=== PATIENT | female | born 1950 | race Caucasian/White ===

== ENCOUNTER → 2016-09-19 | Outpatient (CLI) | payer MEDICARE ==
[~2016-09-19] MED LIST: AGGRENOX (D1 CAPSULE PO; CYTOMEL25 MCG PO; INDOCIN25 M1 PO; LUMIGAN 2.5 ML2.5 M1 OP; MEDROXYPROGESTE10 MG PO; METFORMIN 500M500 MG PO; SYNTHROID0.137 MG PO
== END ==
LOC: LAB 12:10
DX: M19.90 Unspecified osteoarthritis, unspecified site (principal); R70.0 Elevated erythrocyte sedimentation rate

== ENCOUNTER → 2016-12-26 | Outpatient (CLI) | payer MEDICARE ==
[2016-12-26 11:46] LABS: BUN 16 mg/dL (7-18)
[2016-12-26 11:48] LABS: GFR (ESTIMATED) 56 ML/MIN (59-)
[2016-12-27 08:40] LABS: Creatinine, Urine 462.5 mg/dL (Not Estab.); Microalbumin, Urine 130.7 ug/mL (Not Estab.)
== END ==
LOC: LAB 10:06
PROVIDERS: Internal Medicine
DX: E11.40 Type 2 diabetes mellitus with diabetic neuropathy, unspecified (principal); I10 Essential (primary) hypertension; E66.01 Morbid (severe) obesity due to excess calories; M15.0 Primary generalized (osteo)arthritis; E78.5 Hyperlipidemia, unspecified

== ENCOUNTER → 2017-03-26 | Outpatient (CLI) | payer MEDICARE | LOC: RT 10:38 | DX: R07.9 Chest pain, unspecified (principal); I10 Essential (primary) hypertension; E11.42 Type 2 diabetes mellitus with diabetic polyneuropathy ==